=== PATIENT | male | born 1960 | race Caucasian/White ===

== ENCOUNTER 2024-05-02 22:27 | Emergency (ER) | payer MEDICARE, BC ==
[~2024-05-02] VITALS: Ht 170.2 cm; Wt 90.9 kg
[2024-05-02 22:33] VITALS: BP 137/79; PULSE 88; RESP 17; TEMP 98.2; O2SAT 98
== END 2024-05-03 00:57 ==
LOC: ER 22:27
DX: S00.81XA Abrasion of other part of head, initial encounter (principal); M48.02 Spinal stenosis, cervical region; X58.XXXA Exposure to other specified factors, initial encounter; Y93.89 Activity, other specified; Y92.89 Other specified places as the place of occurrence of the external cause; Y99.8 Other external cause status
CPT/HCPCS: 70450; 72125; 99284